=== PATIENT | male | born 1980 | race Caucasian/White ===

== ENCOUNTER 2024-12-22 09:50 | Inpatient (IN) | payer MEDICAID, OTHER ==
[2024-12-22 10:39] LABS: Basophils # (A) 0.05 10*3/uL (0.00-0.10); Basophils % (A) 1.3 %; Eosinophils # (A) 0.02 10*3/uL (0.04-0.35); Eosinophils % (A) 0.5 %; HCT 42.7 % (39.6-50.0); HGB 14.8 g/dL (13.0-17.0); Lymphocytes # (A) 1.05 10*3/uL (0.90-5.00); Lymphocytes % (A) 27.6 %; MCH 28.6 pg (27.0-32.0); MCHC 34.7 g/dL (32.0-37.0); MCV 82.4 fL (80.0-97.0); Monocytes # (A) 0.51 10*3/uL (0.20-1.00); Monocytes % (A) 13.4 %; Neutrophils # (A) 2.14 10*3/uL (1.80-7.70); Neutrophils % (A) 56.4 %; Platelet Count 180 10*3/uL (140-440); RBC 5.18 10*6/uL (4.40-5.60); RDW 13.1 % (11.5-14.5)
[2024-12-22 10:53] LABS: ALT 33 U/L (4-49); AST 35 U/L (17-59); African American GFR (CKD) >90 (>60 ml/min/1.73 sqM); Albumin 4.2 g/dL (3.5-5.0); Alkaline Phosphatase 91 U/L (38-126); Anion Gap 9 mmol/L; Blood Urea Nitrogen 9 mg/dL (9-20); Calcium 8.8 mg/dL (8.4-10.2); Carbon Dioxide 23 mmol/L (22-30); Chloride 103 mmol/L (98-107); Glucose 160 mg/dL (74-99); Lipase 82 U/L (23-300); Magnesium 1.9 mg/dL (1.6-2.3); Non-African American GFR(CKD) 79 (>60 ml/min/1.73 sqM); Potassium 4.1 mmol/L (3.5-5.1); Sodium 135 mmol/L (137-145); Total Bilirubin 1.4 mg/dL (0.2-1.3); Total Protein 7.1 g/dL (6.3-8.2)
[2024-12-22] MEDS: SODIUM CHLORIDE 0.9% 1,000 ML IV STA (10:54)
[2024-12-22] MEDS: KETOROLAC 15 MG/ML 1 ML VIAL IVP STA (10:54)
[2024-12-22] MEDS: diphenhydrAMINE 50 MG/ML 1 ML VIAL IVP STA (10:55)
[2024-12-22] MEDS: ONDANSETRON 4 MG/2 ML VIAL IVP STA (10:56)
[2024-12-22 11:01] LABS: NT-Pro-B-Type Natriuretic Pept 61 pg/mL
[2024-12-22 11:11] LABS: INR 1.2 (<1.2); Partial Thromboplastin Time 24.5 sec (22.0-30.0); Prothrombin Time 12.5 sec (10.0-12.5)
--- NOTE | 2024-12-22 11:34 | XR ---
EXAMINATION TYPE: XR chest 2V DATE OF EXAM: 12/22/2024 11:31 AM COMPARISON: None. CLINICAL INDICATION: Male, 44 years old with history of Chest Pain, TECHNIQUE: XR chest 2V view(s) obtained. FINDINGS: The heart size is normal. The pulmonary vasculature is normal. The lungs are clear. IMPRESSION: 1. No acute pulmonary process. [facility], , 12/22/2024 11:32 AM
[2024-12-22 11:36] LABS: Influenza A Not Detected (Not Detectd); Influenza B Not Detected (Not Detectd); RSV Not Detected (Not Detectd)
--- NOTE | 2024-12-22 13:24 | CT ---
EXAMINATION TYPE: CT chest angio for PE DATE OF EXAM: 12/22/2024 COMPARISON: None CLINICAL INDICATION: Male, 44 years old with history of eval for PE; PHH, CP, eval for PE., SOB or PA IN TECHNIQUE: Ct angiogram of the chest performed with with IV Contrast, patient injected with 100 ml mL of Isovue 370. MIP images are created and reviewed. CT DLP: 659.[address] CTDI: mGy Automated exposure control for dose reduction was used. FINDINGS: There are no filling defects within the pulmonary arterial circulation to suggest pulmonary embolism. There is a 10.7 mm left lower lobe pulmonary nodule. There is an enlarged 12.5 mm left hilar lymph no de. There is no mediastinal adenopathy. There is no airspace consolidation. There is no abnormal interstitial density. There is no pleural effusion or pneumothorax. Limited scanning through the upper abdomen reveals hepatomegaly and borderline splenic enlargement. There are no focal osseous lesions. IMPRESSION: 1. No evidence of pulmonary embolism. 2. 10.7 mm left lower lobe pulmonary nodule and left hilar lymphadenopathy. 3. Hepatomegaly and borderline splenic enlargement. 4. Malignancy is not excluded and further workup is warranted. PET scan for the left lower lobe pulmo nary nodule is recommended. Follow-up recommendations for incidental pulmonary nodules are per [employer] or [employer]. [facility], , 12/22/2024 1:21 PM
--- NOTE | 2024-12-22 14:11 | US ---
EXAMINATION TYPE: US venous doppler duplex LE BI DATE OF EXAM: 12/22/2024 1:45 PM COMPARISON: NONE CLINICAL INDICATION: Male, 44 years old with history of eval for dvt; pain, Pain TECHNIQUE: The lower extremity deep venous system is examined utilizing real time linear array sonog tona with graded compression, color doppler sonography, and spectral doppler. SIDE PERFORMED: Bilateral FINDINGS: VESSELS IMAGED: Common Femoral Vein Deep Femoral Vein Greater Saphenous Vein * Femoral Vein Popliteal Vein Small Saphenous Vein * Proximal Calf Veins (* superficial vessels) Right Leg: Negative for DVT, Color Doppler imaging shows patency of the vessels. Spectral waveforms are within normal limits. Left Leg: Negative for DVT, Color Doppler imaging shows patency of the vessels. Spectral waveforms a re within normal limits. IMPRESSION: 1. Bilateral lower extremity ultrasound negative for deep venous thrombosis. [facility], , 12/22/2024 2:09 PM
[2024-12-22] MEDS ORDERED: NALOXONE 0.4 MG/ML 1 ML VIAL IV PRN (14:44)
--- NOTE | 2024-12-22 14:58 | ED ---
General Adult HPI - General Chief complaint: Chest Pain Stated complaint: chest pain Time Seen by Provider: 12/22/24 10:09 Source: patient, RN notes reviewed, old records reviewed Mode of arrival: ambulatory Limitations: no limitations - History of Present Illness Initial comments: Patient is a 44-year-old male who presents emergency department with intermittent chest pain, shortness of breath ongoing for weeks to months. States he has been intermittently short of breath at rest and and on exertion for the last 2 months. Has noticed some intermittent chest discomfort over the last few weeks. For last 1 week he has had a migraine headache that is more or less constant. Describes the chest pain as an achy sensation and then feels lik e his heart is racing. Recently just started seeing a PCP. Has a history of sleep apnea as well as remote history of what sounds like a provoked DVT currently not on blood thinners. Presents for further evaluation at this time. No known provocative or palliative factors. No cough or congestion. No fevers. No tobacco history.Currently has no symptoms other than migraine. - Related Data Home Medications Medication Instructions Recorded Confirmed Omeprazole Magnesium [PriLOSEC OTC] 20 mg PO DAILY 12/22/24 12/22/24 diphenhydrAMINE [Benadryl] 25 mg PO DAILY 12/22/24 12/22/24 Allergies Allergy/AdvReac Type Severity Reaction Status Date / Time No Known Allergies Allergy Verified 12/22/24 14:39 Review of Systems ROS Statement: Those systems with pertinent positive or pertinent negative responses have been documented in the HPI. Review of Systems: CONST: Denies fever EYES: Denies blurry vision ENT: Denies nasal congestion C/V: Denies Chest pain RESP: Denies shortness of breath GI: Denies abdominal pain : Denies dysuria SKIN: Denies rash. MSK: Denies joint pain. NEURO: Endorses headache ROS Other: All systems not noted in ROS Statement are negative. Past Medical History Additional Past Medical History / Comment(s): t5-9 herniated, sleep apnea, seasonal allergies History of Any Multi-Drug Resistant Organisms: None Reported Past Surgical History: No Surgical Hx Reported Past Psychological History: No Psychological Hx Reported Smoking Status: Never smoker Past Alcohol Use History: Occasional Past Drug Use History: None Reported General Exam - General Exam Comments Initial Comments: General: Appears in no acute distress. Febrile in the waiting room however afebrile at bedside. Does not feel febrile. HEAD: Normal with no signs of head trauma. EYES: PERRLA, EOMI, conjunctiva normal, no discharge. Pupils are 3 mm and equal bilaterally. ENT: Hearing grossly intact, normal oropharynx. RESPIRATORY: Clear breath sounds bilaterally. No wheezes, rales, or rhonchi. C/V: Regular rate and rhythm. S1 and S2 auscultated, no edema, peripheral pulses 2+ and intact throughout ABD: Abd is soft, nontender, nondistended EXT: Normal range of motion, no obvious deformity SKIN: No rashes or lesions observed on exposed skin. NEURO: Alert and oriented x 4. Cranial nerves II-XII intact. No focal sensory or strength deficits. GCS of 15. Limitations: no limitations Course Vital Signs 12/22/24 12/22/24 12/22/24 09:53 11:33 14:11 Temperature 100.1 F H 98.3 F Pulse Rate 105 H 74 74 Respiratory 18 18 18 Rate Blood Pressure 136/82 138/92 127/82 O2 Sat by Pulse 96 96 99 Oximetry Medical Decision Making - Medical Decision Making Was pt. sent in by a medical professional or institution (, PA, ELEMENTARY LIBRARIAN, urgent care, hospital, or fdc...) When possible be specific @ -No Did you speak to anyone other than the patient for history (EMS, parent, family, police, friend...)? What history was obtained from this source @ -No Did you review nursing and triage notes (agree or disagree)? Why? @ -I reviewed and agree with nursing and triage notes Were old charts reviewed (outside hosp., previous admission, EMS record, old EKG, old radiological studies, urgent care reports/EKG's, fdc records)? Report findings @ -No old charts were reviewed Differential Diagnosis (chest pain, altered mental status, abdominal pain women, abdominal pain men, vaginal bleeding, weakness, fever, dyspnea, syncope, headache, dizziness, GI bleed, back pain, seizure, CVA, palpatations, mental health, musculoskeletal)? @ -Differential Chest Pain: Stable Angina, Unstable Angina, STEMI, NSTEMI Aortic Dissection, Pneumothorax, Musculoskeletal, Esophageal Spasm GERD, Cholecystitis, Pancreatitis, Zoster, this is not meant to be an all-inclusive list. EKG interpreted by me (3pts min.). @ -As above X-rays interpreted by me (1pt min.). @ -Chest x-ray reveals no obvious acute cardiopulmonary process. CT interpreted by me (1pt min.). @ -CT PE negative for pulmonary embolism. Patient does have a 10.7 mm left lower lobe pulmonary nodule with left hilar lymphadenopathy. Mild hepatomegaly and splenic enlargement. Radiology concern for possible malignancy regarding the pulmonary nodule and the lymphadenopathy. U/S interpreted by me (1pt. min.). @ -DVT ultrasound negative for DVT. What testing was considered but not performed or refused? (CT, X-rays, U/S, labs)? Why? @ -None What meds were considered but not given or refused? Why? @ -None Did you discuss the management of the patient with other professionals (professionals i.e. , PA, ELEMENTARY LIBRARIAN, lab, RT, psych nurse, social work administrator, management liaison, teacher, county health officer, continuous pillowcase cutter)? Give summary @ -Discussed with JORDAN Brar of [facility] who accepted the admission. Was smoking cessation discussed for >3mins.? @ -No Was critical care preformed (if so, how long)? @ -No Were there social determinants of health that impacted care today? How? (Homelessness, low income, unemployed, alcoholism, drug addiction, transportation, low edu. Level, literacy, decrease access to med. care, group home, rehab)? @ -No Was there de-escalation of care discussed even if they declined (Discuss DNR or withdrawal of care, Hospice)? DNR status @ -No What co-morbidities impacted this encounter? (DM, HTN, Smoking, COPD, CAD, Cancer, CVA, ARF, Chemo, Hep., AIDS, mental health diagnosis, sleep apnea, morbid obesity)? @ -Sleep apnea Was patient admitted / discharged? Hospital course, mention meds given and route, prescriptions, significant lab abnormalities, going to OR and other pertinent info. @ -Patient presents with multiple nonspecific symptoms, most concerning of which are the intermittent chest discomfort and 2 months of dyspnea. Patient also has a migraine. Given a migraine cocktail which improved his migraine. He currently has no chest pain or shortness of breath. Vital signs are within acceptable limits. EKG shows no signs of acute ischemia. Laboratory studies remarkable for slightly elevated D-dimer of 0.62. Troponin undetectable. BNP within acceptable limits. Chest x-ray unremarkable. DVT ultrasound negative for any obvious blood clot. CTPE negative for pulmonary embolism but does show a left lobe pulmonary nodule with surrounding lymphadenopathy. I updated the patient. He expressed understanding of findings. Patient will be admitted to observation for cardiology evaluation for his atypical chest pain. Pulmonology consulted for the pulmonary nodule as well as the intermittent dyspnea. Echo ordered. Will trend the troponin. Given 324 mg of aspirin. Patient was in agreement this plan. It seems that the patient has poor outpatient follow-up. I discussed the case with the admitting provider, JORDAN Brar of [facility] who accepted the admission. Undiagnosed new problem with uncertain prognosis? @ -No Drug Therapy requiring intensive monitoring for toxicity (Heparin, Nitro, Insulin, Cardizem)? @ -No Were any procedures done? @ -No Diagnosis/symptom? @ -Atypical chest pain, pulmonary nodule Acute, or Chronic, or Acute on Chronic? @ -Acute Uncomplicated (without systemic symptoms) or Complicated (systemic symptoms)? @ -complicated Side effects of treatment? @ -No Exacerbation, Progression, or Severe Exacerbation? @ -No Poses a threat to life or bodily function? How? (Chest pain, [place], [place], pneumonia, PE, COPD, DKA, ARF, appy, cholecystitis, CVA, Diverticulitis, Homicidal, Suicidal, threat to staff... and all critical care pts) @ -Potentially, yes - Lab Data Result diagrams: 12/22/24 10:25 12/22/24 10:25 Lab Results 12/22/24 12/22/24 12/22/24 Range/Units 10:25 10:25 10:25 WBC 3.80 L (4.50-10.00) 10*3/uL RBC 5.18 (4.40-5.60) 10*6/uL Hgb 14.8 (13.0-17.0) g/dL Hct 42.7 (39.6-50.0) % MCV 82.4 (80.0-97.0) fL MCH 28.6 (27.0-32.0) pg MCHC 34.7 (32.0-37.0) g/dL Plt Count 180 (140-440) 10*3/uL MPV 10.0 (9.5-12.2) fL Immature Gran % (Auto) 0.8 % Neutrophils % 56.4 % Lymphocytes % 27.6 % Monocytes % 13.4 % Eosinophils % 0.5 % Basophils % 1.3 % Immature Gran # 0.03 (0.00-0.04) 10*3/uL Neutrophils # 2.14 (1.80-7.70) 10*3/uL Lymphocytes # 1.05 (0.90-5.00) 10*3/uL Monocytes # 0.51 (0.20-1.00) 10*3/uL Eosinophils # 0.02 L (0.04-0.35) 10*3/uL Basophils # 0.05 (0.00-0.10) 10*3/uL PT 12.5 (10.0-12.5) sec INR 1.2 H (<1.2) APTT 24.5 (22.0-30.0) sec D-Dimer 0.62 H (<0.60) mg/L FEU Sodium 135 L (137-145) mmol/L Potassium 4.1 (3.5-5.1) mmol/L Chloride 103 (98-107) mmol/L Carbon Dioxide 23 (22-30) mmol/L Anion Gap 9 mmol/L BUN 9 (9-20) mg/dL Creatinine 1.14 (0.66-1.25) mg/dL Est GFR (CKD-EPI)AfAm >90 (>60 ml/min/1.73 sqM) Est GFR (CKD-EPI)NonAf 79 (>60 ml/min/1.73 sqM) Glucose 160 H (74-99) mg/dL Plasma Lactic Acid Waqar (0.7-2.0) mmol/L Calcium 8.8 (8.4-10.2) mg/dL Magnesium 1.9 (1.6-2.3) mg/dL Total Bilirubin 1.4 H (0.2-1.3) mg/dL AST 35 (17-59) U/L ALT 33 (4-49) U/L Alkaline Phosphatase 91 (38-126) U/L Troponin I (0.000-0.034) ng/mL NT-Pro-B Natriuret Pep 61 pg/mL Total Protein 7.1 (6.3-8.2) g/dL Albumin 4.2 (3.5-5.0) g/dL Lipase 82 (23-300) U/L Influenza Type A (PCR) (Not Detectd) Influenza Type B (PCR) (Not Detectd) RSV (PCR) (Not Detectd) SARS-CoV-2 (PCR) (Not Detectd) 12/22/24 12/22/24 12/22/24 Range/Units 10:25 10:25 10:57 WBC (4.50-10.00) 10*3/uL RBC (4.40-5.60) 10*6/uL Hgb (13.0-17.0) g/dL Hct (39.6-50.0) % MCV (80.0-97.0) fL MCH (27.0-32.0) pg MCHC (32.0-37.0) g/dL Plt Count (140-440) 10*3/uL MPV (9.5-12.2) fL Immature Gran % (Auto) % Neutrophils % % Lymphocytes % % Monocytes % % Eosinophils % % Basophils % % Immature Gran # (0.00-0.04) 10*3/uL Neutrophils # (1.80-7.70) 10*3/uL Lymphocytes # (0.90-5.00) 10*3/uL Monocytes # (0.20-1.00) 10*3/uL Eosinophils # (0.04-0.35) 10*3/uL Basophils # (0.00-0.10) 10*3/uL PT (10.0-12.5) sec INR (<1.2) APTT (22.0-30.0) sec D-Dimer (<0.60) mg/L FEU Sodium (137-145) mmol/L Potassium (3.5-5.1) mmol/L Chloride (98-107) mmol/L Carbon Dioxide (22-30) mmol/L Anion Gap mmol/L BUN (9-20) mg/dL Creatinine (0.66-1.25) mg/dL Est GFR (CKD-EPI)AfAm (>60 ml/min/1.73 sqM) Est GFR (CKD-EPI)NonAf (>60 ml/min/1.73 sqM) Glucose (74-99) mg/dL Plasma Lactic Acid Waqar 1.4 (0.7-2.0) mmol/L Calcium (8.4-10.2) mg/dL Magnesium (1.6-2.3) mg/dL Total Bilirubin (0.2-1.3) mg/dL AST (17-59) U/L ALT (4-49) U/L Alkaline Phosphatase (38-126) U/L Troponin I <0.012 (0.000-0.034) ng/mL NT-Pro-B Natriuret Pep pg/mL Total Protein (6.3-8.2) g/dL Albumin (3.5-5.0) g/dL Lipase (23-300) U/L Influenza Type A (PCR) Not Detected (Not Detectd) Influenza Type B (PCR) Not Detected (Not Detectd) RSV (PCR) Not Detected (Not Detectd) SARS-CoV-2 (PCR) Not Detected (Not Detectd) - EKG Data -: EKG Interpreted by Me EKG Comments: 12-lead Electrocardiogram Interpretation Note EKG was reviewed and interpreted by myself. 12-lead ECG performed at 1005 is interpreted by me as revealing normal sinus rhythm at a rate of 86 beats per minute. Lee is normal. [place] interval is 141 ms, QRS duration 104 ms, QTc is 403 ms.. There were no ST or T wave abnormalities to suggest myocardial ischemia or injury. R wave progression across the precordium was satisfactory. By my interpretation this EKG is non-diagnostic for acute ischemia. Disposition Clinical Impression: Atypical chest pain, Pulmonary nodule Disposition: ADMITTED IP TO THIS HOSP Condition: Stable Referrals: [facility] [NON-STAFF] - 1-2 days (Contact a primary care office to become established with a provider.) [facility] [NON-STAFF] - 1-2 days None,Stated [Primary Care Provider] - 1-2 days Forms: Area PCPs Time of Disposition: 14:30
[2024-12-22] MEDS: ASPIRIN 81 MG PO STA (14:59)
--- NOTE | 2024-12-22 16:24 | P.CNPUL ---
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 Chest x-ray reveals no acute pulmonary process. Doppler of the lower extremity ruled out DVT CT angiogram ruled out pulmonary embolism. There was an incidental 11 mm left lower lobe pulmonary nodule noted. We were consulted for the same. He is seen in the emergency department. Currently sitting up on a stretcher. Awake and alert in no acute distress. Maintaining good O2 saturations in the 90s on room air oxygen. No cough or congestion. No hemoptysis. Hemodynamically stable. White count 3.8. Hemoglobin 14.8. Platelets 180. Sodium 135. Potassium 4.1. Bicarb 23. BUN 9. Creatinine 1.14. Glucose 160. Troponins negative x 2. CBC viral screen negative for influenza A/B, RSV and COVID. Review of Systems REVIEW OF SYSTEMS: CONSTITUTIONAL: Denies any recent significant weight loss or weight gain. EYES: Denies change in vision. EARS, NOSE, MOUTH, THROAT: Denies headaches, denies sore throat. CARDIOVASCULAR: Positive for chest pain, palpitations no syncopal episodes. RESPIRATORY: Positive for shortness of breath, no cough, congestion or hemopt ysis. GASTROINTESTINAL: Denies change in appetite, denies abdominal pain GENITOURINARY: Denies hematuria, denies infections. MUSKULOSKELETAL: Denies pain, denies swelling. INTEGUMENTARY: Denies rash, denies eczema. NEUROLOGICAL: Denies recent memory loss, no recent seizure activity. PSYCHIATRIC: Denies anxiety, denies depression. HEMATOLOGIC/LYMPHATIC: Denies anemia, denies enlarged lymph nodes. Past Medical History Additional Past Medical History / Comment(s): t5-9 herniated, sleep apnea, seasonal allergies History of Any Multi-Drug Resistant Organisms: None Reported Past Surgical History: No Surgical Hx Reported Past Psychological History: No Psychological Hx Reported Smoking Status: Never smoker Past Alcohol Use History: Occasional Past Drug Use History: None Reported Medications and Allergies Home Medications Medication Instructions Recorded Confirmed Type Omeprazole Magnesium [PriLOSEC OTC] 20 mg PO DAILY 12/22/24 12/22/24 History diphenhydrAMINE [Benadryl] 25 mg PO DAILY 12/22/24 12/22/24 History Allergies Allergy/AdvReac Type Severity Reaction Status Date / Time No Known Allergies Allergy Verified 12/22/24 14:39 Physical Exam Vitals: Vital Signs Temp Pulse Resp BP Pulse Ox 12/22/24 14:11 74 18 127/82 99 12/22/24 11:33 98.3 F 74 18 138/92 96 12/22/24 09:53 100.1 F H 105 H 18 136/82 96 Intake and Output 12/22/24 12/22/24 12/22/24 06:59 14:59 22:59 Other: Weight 120.202 kg GENERAL EXAM: Alert, pleasant 44-year-old male, on room air oxygen, fairly comfortable in no apparent distress. HEAD: Normocephalic. EYES: Normal reaction of pupils, equal size. NOSE: Clear with pink turbinates. THROAT: No erythema or exudates. NECK: No masses, no JVD. CHEST: No chest wall deformity. LUNGS: Equal air entry with no crackles, wheeze, rhonchi or dullness. CVS: S1 and S2 normal with no audible murmur, regular rhythm. ABDOMEN: No hepatosplenomegaly, normal bowel sounds, no guarding or rigidity. SPINE: No scoliosis or deformity SKIN: No rashes CENTRAL NERVOUS SYSTEM: No focal deficits, tone is normal in all 4 extremities. EXTREMITIES: There is no peripheral edema. No clubbing, no cyanosis. Peripheral pulses are intact. Results - Laboratory Findings CBC and BMP: 12/22/24 10:25 12/22/24 10:25 PT/INR, D-dimer PT 12.5 sec (10.0-12.5) 12/22/24 10:25 INR 1.2 (<1.2) H 12/22/24 10:25 D-Dimer 0.62 mg/L FEU (<0.60) H 12/22/24 10:25 Abnormal lab findings: Abnormal Labs 12/22/24 12/22/24 12/22/24 10:25 10:25 10:25 WBC 3.80 L Eosinophils # 0.02 L INR 1.2 H D-Dimer 0.62 H Sodium 135 L Glucose 160 H Total Bilirubin 1.4 H - Diagnostic Findings Chest x-ray: image reviewed CT scan - chest: image reviewed Assessment and Plan Assessment: Atypical chest pain, acute coronary syndrome ruled out Dyspnea of unclear etiology, possible deconditioning, CT angiogram ruled out pulmonary embolism, clear lung mcdaniel Pulmonary nodule measuring 11 mm in the left lower lobe History of obstructive sleep apnea maintained on CPAP Lifelong non-smoker Plan: The patient was seen and evaluated All imaging, labs and medications reviewed Stable and on room air oxygen Cardiology consult pending Patient informed of the 11 mm pulmonary nodule Would recommend follow-up CAT scan in 3 to 4 months Will follow-up in our office after discharge I have personally seen and examined the patient, performed the documentation and the assessment and plan as written. Number of minutes spent on the visit: 20 Dictation was produced using [employer] dictation software. Please excuse any grammatical, word or spelling errors. Time with Patient: Greater than 30
[2024-12-22] MEDS: ONDANSETRON 4 MG/2 ML VIAL IVP PRN (19:11)
[2024-12-22 20:21] LABS: Appearance,Urine Clear (Clear); Bilirubin,Urine Negative (Negative); Blood,Urine Moderate (Negative); Color,Urine Yellow; Glucose,Urine (UA) 1+ (Negative); Ketones,Urine Negative (Negative); Leukocyte Esterase,Urine Negative (Negative); Mucus,Urine Rare /hpf; Nitrite,Urine Negative (Negative); Protein,Urine Negative (Negative); RBC,Urine 17 /hpf (0-5); WBC,Urine 1 /hpf (0-5)
[2024-12-22] MEDS: Acetaminophen-Codeine 300-30mg TAB PO PRN (20:50)
[2024-12-23] MEDS: ENOXAPARIN 40 MG/0.4 ML SYRINGE SQ SCH (08:19)
[2024-12-23 08:20] LABS: BUN/Creat Ratio 8.23 Ratio (12.00-20.00); Blood Urea Nitrogen 10.7 mg/dL (9.0-27.0); Chloride 103 mmol/L (96-109); Glucose 125 mg/dL (70-110); Potassium 4.8 mmol/L (3.5-5.5); Sodium 137 mmol/L (135-145)
[2024-12-23 08:21] LABS: ALT 33 U/L (10-49); AST 31 U/L (14-35); Albumin 3.8 g/dL (3.8-4.9); Albumin/Globulin Ratio 1.58 Ratio (1.60-3.17); Alkaline Phosphatase 79 U/L (41-126); Calcium 8.4 mg/dL (8.7-10.3); Carbon Dioxide 24.4 mmol/L (21.6-31.8); Globulin 2.4 g/dL (1.6-3.3); Total Protein 6.2 g/dL (6.2-8.2)
[2024-12-23 08:41] LABS: Basophils # (A) 0.03 X 10*3/uL (0.00-0.10); Basophils % (A) 0.8 %; Eosinophils # (A) 0.02 X 10*3/uL (0.04-0.35); Eosinophils % (A) 0.5 %; HCT 41.4 % (39.6-50.0); HGB 13.7 g/dL (13.0-17.0); Lymphocytes # (A) 1.19 X 10*3/uL (0.90-5.00); Lymphocytes % (A) 29.9 %; MCHC 33.1 g/dL (32.0-37.0); MCV 84.5 FL (80.0-97.0); Mean Platelet Volume 10.2 FL (9.5-12.2); Monocytes # (A) 0.64 X 10*3/uL (0.20-1.00); Monocytes % (A) 16.1 %; NRBC Per 100 WBC 0 X 10*3/uL (0.00-0.01); Neutrophils # (A) 2.06 X 10*3/uL (1.80-7.70); Neutrophils % (A) 51.7 %; Platelet Count 168 X 10*3/uL (140-440); RDW 13.3 % (11.5-14.5); WBC 3.98 X 10*3/uL (4.50-10.00)
--- NOTE | 2024-12-23 10:10 | P.CRDCN ---
History of Present Illness Consult date: 12/23/24 Consult reason: chest pain (Dyspnea) History of present illness: This is a 44-year-old male with past medical history of GERD, migraine headaches . We have been asked to evaluate the patient for chest pain. Patient states he started with a migraine headache that was mor severe than he has had in the past. The next day, he developed chest discomfort. Chest pain felt like a heaviness and at the same time he had increased shortness of breath. He denies dizziness or lightheadedness. He denies any lower extremity edema. He states he did have sweating of his palms. He denies any cough or sputum production. No wheezing. Patient also states he had a fluttering sensation in his chest. He has had shortness of breath for the past week that his is also noticed. He denies chest pain with activity. He denies any change in chest pain with deep breathing. Patient states that he is a non-smoker. No alcohol abuse. He denies history of hypertension or diabetes. He has never seen a radon inspector in the past. Patient notes that he has been running a low-grade fever since arrival. Blood pressure noted to be high overnight at 167/108. Blood pressure is now 130/74, heart rate 100, pulse ox 95% on room air, temperature max 101.5. Patient is status post 1 L IV fluid bolus, Zofran, Toradol, Benadryl and aspirin. Patient denies chest pain at the time of this evaluation but he still has ongoing headache 01/19. -EKG: Sinus rhythm with nonspecific ST changes. -Chest x-ray: No acute process. -Venous duplex bilateral lower extremity negative for DVT. -CTA chest: No pulmonary embolism. 10.7 mm left lower lobe pulmonary nodule and left hilar lymphadenopathy. Hepatomegaly and borderline splenic enlargement. Malignancy not excluded. -Laboratory studies: WBC 3.8, hemoglobin 14.8. D-dimer 0.62. Sodium 135, potassium 4.1, BUN 9, creatinine 1.14. Troponins negative x 3. TSH 1.22. Glucose 160. Cepheid viral panel not detected. Urinalysis revealed moderate amount of blood. -Home cardiac medications: None Review Of Systems: At the time of my exam: CONSTITUTIONAL: Denies fever or chills. HEENT: Denies blurred vision, vision changes, or eye pain. Denies hemoptysis CARDIOVASCULAR: Denies chest pain. Denies orthopnea. Denies PND. Denies palpitations RESPIRATORY: Denies shortness of breath. GASTROINTESTINAL: Denies abdominal pain. Denies nausea or vomiting. HEMATOLOGIC: Denies bleeding disorders. GENITOURINARY: Denies any blood in urine. SKIN: Denies puritis. Denies rash. Physical examination: Gen: This is a 44-year-old male in no acute distress. VS: reviewed HEENT: Head is atraumatic, normocephalic. Pupils equal, round. Sclerae is anicteric. NECK: Supple. No JVD. LUNGS: Clear to auscultation. No wheezes or rhonchi. No intercostal retractions. HEART: Regular rate and rhythm. No murmur. No rub. ABDOMEN: Soft No tenderness. EXTREMITIES: No pedal edema. No calf tenderness. NEUROLOGICAL: Patient is awake, alert and oriented x3. Assessment: Atypical chest pain, acute coronary syndrome ruled out Febrile illness of unclear etiology, no clinical evidence of pericarditis Pulmonary nodule with lymphadenopathy, plan is outpatient follow-up GERD Plan: Obtain 2-D echocardiogram and Doppler study to assess cardiac structure and function No plan for any additional cardiac workup at this time. Patient may follow-up in the office with Dr. Barnes for outpatient stress testing. Further recommendations to follow based upon clinical course Thank you kindly for this consultation. Nurse practitioner note has been reviewed, I agree with documented findings and plan of care. Patient was seen and examined. Past Medical History Past Medical History: Deep Vein Thrombosis (DVT), Sleep Apnea/CPAP/BIPAP Additional Past Medical History / Comment(s): t5-9 herniated, sleep apnea with cpap, seasonal allergies History of Any Multi-Drug Resistant Organisms: None Reported Past Surgical History: No Surgical Hx Reported Past Anesthesia/Blood Transfusion Reactions: No Reported Reaction Additional Past Anesthesia/Blood Transfusion Reaction / Comment(s): never had blood transfusion or anesthesia Past Psychological History: No Psychological Hx Reported Smoking Status: Never smoker Past Alcohol Use History: Occasional Past Drug Use History: None Reported Medications and Allergies Home Medications Medication Instructions Recorded Confirmed Type Omeprazole Magnesium [PriLOSEC OTC] 20 mg PO DAILY 12/22/24 12/22/24 History diphenhydrAMINE [Benadryl] 25 mg PO DAILY 12/22/24 12/22/24 History Allergies Allergy/AdvReac Type Severity Reaction Status Date / Time No Known Allergies Allergy Verified 12/22/24 14:39 Physical Exam Vitals: Vital Signs Temp Pulse Pulse Resp BP BP Pulse Ox 12/23/24 03:55 100.3 F H 12/23/24 00:18 101.5 F H 100 20 130/74 95 12/22/24 23:12 124/76 12/22/24 20:00 98.1 F 98 18 167/108 97 12/22/24 19:12 96 18 168/97 97 12/22/24 14:11 74 18 127/82 99 12/22/24 11:33 98.3 F 74 18 138/92 96 12/22/24 09:53 100.1 F H 105 H 18 136/82 96 Intake and Output 12/22/24 12/23/24 12/23/24 22:59 06:59 14:59 Intake Total 540 Balance 540 Intake: Oral 540 Other: Voiding Method Toilet # Voids 2 2 Weight 120.202 kg Results 12/23/24 05:24 12/23/24 05:24 Cardiac Enzymes 12/22/24 12/22/24 12/22/24 Range/Units 10:25 10:25 15:00 AST 35 (17-59) U/L Troponin I <0.012 <0.012 (0.000-0.034) ng/mL 12/22/24 Range/Units 18:42 AST (17-59) U/L Troponin I <0.012 (0.000-0.034) ng/mL Coagulation 12/22/24 Range/Units 10:25 PT 12.5 (10.0-12.5) sec APTT 24.5 (22.0-30.0) sec CBC 12/22/24 Range/Units 10:25 WBC 3.80 L (4.50-10.00) 10*3/uL RBC 5.18 (4.40-5.60) 10*6/uL Hgb 14.8 (13.0-17.0) g/dL Hct 42.7 (39.6-50.0) % Plt Count 180 (140-440) 10*3/uL Comprehensive Metabolic Panel 12/22/24 Range/Units 10:25 Sodium 135 L (137-145) mmol/L Potassium 4.1 (3.5-5.1) mmol/L Chloride 103 (98-107) mmol/L Carbon Dioxide 23 (22-30) mmol/L BUN 9 (9-20) mg/dL Creatinine 1.14 (0.66-1.25) mg/dL Glucose 160 H (74-99) mg/dL Calcium 8.8 (8.4-10.2) mg/dL AST 35 (17-59) U/L ALT 33 (4-49) U/L Alkaline Phosphatase 91 (38-126) U/L Total Protein 7.1 (6.3-8.2) g/dL Albumin 4.2 (3.5-5.0) g/dL Current Medications Generic Name Dose Route Start Last Admin Trade Name Freq PRN Reason Stop Dose Admin Acetaminophen/Codeine Phosphate 1 each 12/22/24 20:09 12/23/24 03:52 Acetaminophen-Codeine 300-30mg Tab PO 1 each Q6HR PRN Administration Pain Enoxaparin Sodium 40 mg 12/23/24 09:00 Enoxaparin 40 Mg/0.4 Ml Syringe SQ DAILY LINDSAY Naloxone HCl 0.2 mg 12/22/24 14:44 Naloxone 0.4 Mg/Ml 1 Ml Vial IV Q2M PRN Opioid Reversal Ondansetron HCl 4 mg 12/22/24 14:44 12/22/24 19:11 Ondansetron 4 Mg/2 Ml Vial IVP 4 mg Q8HR PRN Administration Nausea And Vomiting Intake and Output 12/22/24 12/23/24 12/23/24 22:59 06:59 14:59 Intake Total 540 Balance 540 Intake: Oral 540 Other: Voiding Method Toilet # Voids 2 2 Weight 120.202 kg 12/22/24 10:25 12/22/24 10:25
--- NOTE | 2024-12-23 14:18 | P.HPIM ---
History of Present Illness 44-year-old male with history of obstructive sleep apnea came in with complaints of headache bilateral patient had couple episodes of migraine in the past patient was also complaining of chest pain fluttering in nature. Patient had a chest x-ray which showed a pulmonary nodule. Patient had a CT angio of the chest which did not show any significant abnormality except for a pulmonary nodule for which pulmonary evaluated the patient. They will follow-up with him as an outpatient no further intervention is being advised by them. Patient was eval by cardiology for chest pain appears to be noncardiac chest pain. Patient's troponins are negative EKG did not show any significant abnormality. Patient also had low-grade fevers last night patient is negative for influenza AB, RSV and COVID. Patient was having some photophobia but does not have any nuchal rigidity or neck rigidity or neck pain. Patient does not look toxic or septic REVIEW OF SYSTEMS: All other systems are negative except those mentioned in the HPI PHYSICAL EXAMINATION: GENERAL: The patient is alert and oriented x3, not in any acute distress. Well developed, well nourished. HEENT: Pupils are round and equally reacting to light. EOMI. No scleral icterus. No conjunctival pallor. Normocephalic, atraumatic. No pharyngeal erythema. No thyromegaly. CARDIOVASCULAR: S1 and S2 present. No murmurs, rubs, or gallops. PULMONARY: Chest is clear to auscultation, no wheezing or crackles. ABDOMEN: Soft, nontender, nondistended, normoactive bowel sounds. No palpable organomegaly. MUSCULOSKELETAL: No joint swelling or deformity. EXTREMITIES: No cyanosis, clubbing, or pedal edema. NEUROLOGICAL: Gross neurological examination did not reveal any focal deficits. SKIN: No rashes. Assessment and plan -Chest pain atypical rule out acute coronary syndromes evaluated by cardiology no further intervention is being planned at this time - Headache with unexplained fever although there is low possibility meningitis and encephalitis is a consideration may need an LP but we will wait recommendations from infectious disease. - Pulmonary nodule 11 mm in the left lower lobe patient will have a follow-up CAT scan in about 3 to 4 months as an outpatient - Obstructive sleep apnea - Obesity - Gastroesophageal reflux disease - Headache there is still a possibility of migraine headache I cannot give Nostril anti-inflammatories as his creatinine went up from 1.1-1.3 we will use tramadol for now. DVT prophylaxis: Early ambulation Past Medical History Past Medical History: Deep Vein Thrombosis (DVT), Sleep Apnea/CPAP/BIPAP Additional Past Medical History / Comment(s): t5-9 herniated, sleep apnea with cpap, seasonal allergies History of Any Multi-Drug Resistant Organisms: None Reported Past Surgical History: No Surgical Hx Reported Past Anesthesia/Blood Transfusion Reactions: No Reported Reaction Additional Past Anesthesia/Blood Transfusion Reaction / Comment(s): never had blood transfusion or anesthesia Past Psychological History: No Psychological Hx Reported Smoking Status: Never smoker Past Alcohol Use History: Occasional Past Drug Use History: None Reported Medications and Allergies Home Medications Medication Instructions Recorded Confirmed Type Omeprazole Magnesium [PriLOSEC OTC] 20 mg PO DAILY 12/22/24 12/22/24 History diphenhydrAMINE [Benadryl] 25 mg PO DAILY 12/22/24 12/22/24 History Allergies Allergy/AdvReac Type Severity Reaction Status Date / Time No Known Allergies Allergy Verified 12/22/24 14:39 Physical Exam Vitals: Vital Signs Temp Pulse Pulse Resp BP BP Pulse Ox 12/23/24 07:20 100.1 F H 82 18 141/88 96 12/23/24 03:55 100.3 F H 12/23/24 00:18 101.5 F H 100 20 130/74 95 12/22/24 23:12 124/76 12/22/24 20:00 98.1 F 98 18 167/108 97 12/22/24 19:12 96 18 168/97 97 Intake and Output 12/22/24 12/23/24 12/23/24 22:59 06:59 14:59 Intake Total 540 118 Balance 540 118 Intake: Oral 540 118 Other: Voiding Method Toilet # Voids 2 2 Weight 120.202 kg Results CBC & Chem 7: 12/23/24 05:24 12/23/24 05:24 Labs: Abnormal Lab Results - Last 24 Hours (Table) 12/22/24 12/23/24 12/23/24 Range/Units 20:00 05:24 05:24 WBC 3.98 L (4.50-10.00) X 10*3/uL Eosinophils # 0.02 L (0.04-0.35) X 10*3/uL ESR (0-15) mm/Hr BUN/Creatinine Ratio 8.23 L (12.00-20.00) Ratio Glucose 125 H (70-110) mg/dL Calcium 8.4 L (8.7-10.3) mg/dL C-Reactive Protein (0.00-0.80) mg/dL Albumin/Globulin Ratio 1.58 L (1.60-3.17) Ratio Ur Specific [place] 1.050 H (1.001-1.035) Urine Glucose (UA) 1+ H (Negative) Urine Blood Moderate H (Negative) Urine RBC 17 H (0-5) /hpf Urine Mucus Rare H (None) /hpf 12/23/24 12/23/24 Range/Units 05:24 05:24 WBC (4.50-10.00) X 10*3/uL Eosinophils # (0.04-0.35) X 10*3/uL ESR 19 H (0-15) mm/Hr BUN/Creatinine Ratio (12.00-20.00) Ratio Glucose (70-110) mg/dL Calcium (8.7-10.3) mg/dL C-Reactive Protein 1.60 H (0.00-0.80) mg/dL Albumin/Globulin Ratio (1.60-3.17) Ratio Ur Specific [place] (1.001-1.035) Urine Glucose (UA) (Negative) Urine Blood (Negative) Urine RBC (0-5) /hpf Urine Mucus (None) /hpf Thrombosis Risk Factor Assmnt - Choose All That Apply Any of the Below Risk Factors Present?: Yes Each Factor Represents 1 point: Age 41-60 years, Obesity (BMI >25) Each Risk Factor Represents 3 Points: History of DVT/PE Thrombosis Risk Factor Assessment Total Risk Factor Score: 5 Thrombosis Risk Factor Assessment Level: High Risk
--- NOTE | 2024-12-23 14:42 | P.PN ---
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 Chest x-ray reveals no acute pulmonary process. Doppler of the lower extremity ruled out DVT. CT angiogram ruled out pulmonary embolism. There was an incidental 11 mm left lower lobe pulmonary nodule noted. We were consulted for the same. He is seen in the emergency department. Currently sitting up on a stretcher. Awake and alert in no acute distress. Maintaining good O2 saturations in the 90s on room air oxygen. No cough or congestion. No hemoptysis. Hemodynamically stable. White count 3.8. Hemoglobin 14.8. Platelets 180. Sodium 135. Potassium 4.1. Bicarb 23. BUN 9. Creatinine 1.14. Glucose 160. Troponins negative x 2. CBC viral screen negative for influenza A/B, RSV and COVID. The patient is seen today December 23, 2024 in follow-up on the regular medical floor. He is currently sitting up at the bedside. Awake and alert in no acute distress. Maintaining O2 saturations in the 90s on room air oxygen. He denies any worsening shortness of breath, cough or congestion. He denies any sore throat or cough. He is still having some left-sided chest discomfort. He does have a fever of unknown origin. Tmax of 101.5. Procalcitonin pending. Echocardiogram pending. White count 3.9. Hemoglobin 13.7. Platelets 168. Sodium 137. Potassium 4.8. Bicarb 24. BUN 11. Creatinine 1.3. Glucose 125. He is receiving Tylenol as needed. Lovenox for DVT prophylaxis. Objective - Vital Signs Vital signs: Vital Signs Temp 100.1 F H 12/23/24 07:20 Pulse 82 12/23/24 07:20 Resp 18 12/23/24 07:20 BP 141/88 12/23/24 07:20 Pulse Ox 96 12/23/24 07:20 FiO2 Intake & Output 12/22/24 12/23/24 12/23/24 18:59 06:59 18:59 Intake Total 540 118 Balance 540 118 Weight 120.202 kg 120.202 kg Intake: Oral 540 118 Other: Voiding Method Toilet # Voids 2 - Exam GENERAL EXAM: Alert, 44-year-old male, on room air oxygen, fairly comfortable in no apparent distress. HEAD: Normocephalic. EYES: Normal reaction of pupils, equal size. NOSE: Clear with pink turbinates. THROAT: No erythema or exudates. NECK: No masses, no JVD. CHEST: No chest wall deformity. LUNGS: Equal air entry with no crackles, wheeze, rhonchi or dullness. CVS: S1 and S2 normal with no audible murmur, regular rhythm. ABDOMEN: No hepatosplenomegaly, normal bowel sounds, no guarding or rigidity. SPINE: No scoliosis or deformity SKIN: No rashes CENTRAL NERVOUS SYSTEM: No focal deficits, tone is normal in all 4 extremities. EXTREMITIES: There is no peripheral edema. No clubbing, no cyanosis. Peripheral pulses are intact. - Labs CBC & Chem 7: 12/23/24 05:24 12/23/24 05:24 Labs: Abnormal Lab Results - Last 24 Hours (Table) 12/22/24 12/23/24 12/23/24 Range/Units 20:00 05:24 05:24 WBC 3.98 L (4.50-10.00) X 10*3/uL Eosinophils # 0.02 L (0.04-0.35) X 10*3/uL ESR (0-15) mm/Hr BUN/Creatinine Ratio 8.23 L (12.00-20.00) Ratio Glucose 125 H (70-110) mg/dL Calcium 8.4 L (8.7-10.3) mg/dL C-Reactive Protein (0.00-0.80) mg/dL Albumin/Globulin Ratio 1.58 L (1.60-3.17) Ratio Ur Specific [place] 1.050 H (1.001-1.035) Urine Glucose (UA) 1+ H (Negative) Urine Blood Moderate H (Negative) Urine RBC 17 H (0-5) /hpf Urine Mucus Rare H (None) /hpf 12/23/24 12/23/24 Range/Units 05:24 05:24 WBC (4.50-10.00) X 10*3/uL Eosinophils # (0.04-0.35) X 10*3/uL ESR 19 H (0-15) mm/Hr BUN/Creatinine Ratio (12.00-20.00) Ratio Glucose (70-110) mg/dL Calcium (8.7-10.3) mg/dL C-Reactive Protein 1.60 H (0.00-0.80) mg/dL Albumin/Globulin Ratio (1.60-3.17) Ratio Ur Specific [place] (1.001-1.035) Urine Glucose (UA) (Negative) Urine Blood (Negative) Urine RBC (0-5) /hpf Urine Mucus (None) /hpf Assessment and Plan Assessment: Atypical chest pain, acute coronary syndrome ruled out Fever of unknown origin Dyspnea of unclear etiology, possible deconditioning, CT angiogram ruled out pulmonary embolism, clear lung mcdaniel Pulmonary nodule measuring 11 mm in the left lower lobe History of obstructive sleep apnea maintained on CPAP Lifelong non-smoker Plan: The patient was seen and evaluated Having fevers of unknown origin Labs and medications reviewed Stable and on room air oxygen Echocardiogram pending ID consult placed Tylenol as needed Lovenox for DVT prophylaxis Protonix for GI prophylaxis Patient aware of the 11 mm pulmonary nodule Recommend follow-up CAT scan in 3 to 4 months We will continue to follow I have personally seen and examined the patient, performed the documentation and the assessment and plan as written. Number of minutes spent on the visit: 10 Dictation was produced using [email or web address] dictation software. Please excuse any grammatical, word or spelling errors.
[2024-12-23] MEDS: PANTOPRAZOLE 40 MG TABLET PO SCH (15:27)
--- NOTE | 2024-12-23 20:17 | P.CONS ---
History of Present Illness - Reason for Consult Consult date: 12/23/24 FUO Requesting physician: Sejal Montero - Chief Complaint Headache and chest pain x few days - History of Present Illness Patient is a 44-year-old male with a past medical history of For sleep apnea DVT presenting to the hospital with multiple symptoms patient initially started having headache was mostly sudden onset sharp and moderate in intensity subsequently developing chest pain with some associated shortness of breath for which the patient was taken to the hospital by his patient on presentation to the hospital did have low-grade fever 100 F however after midnight he did spike a fever of 101.5 F patient was tachycardic but not hypotensive or hypoxic patient did have a mild leukopenia with a white count of 3.98 but no left shift patient did have a creatinine 1.3 electrolytes are normal liver enzymes are normal urine is mildly positive influenza RSV COVID testing was negative patient did have a chest x-ray followed by CT angiogram of the chest there was no filling defect and there was 10.7 mm left lower lobe pulmonary nodule and enlarged hilar lymph nodes are normal*lymphadenopathy no airspace consolidation ID was consulted concerning for fever of unknown origin patient has been complaining of headache which is moderate intensity with associated photophobia did have nausea but no vomiting denies having any joint swelling or lower ext remity erythema Review of Systems Positive point and negatives has been mentioned in the HPI, complete review of systems was performed and all other systems are negative Past Medical History Past Medical History: Deep Vein Thrombosis (DVT), Sleep Apnea/CPAP/BIPAP Additional Past Medical History / Comment(s): t5-9 herniated, sleep apnea with cpap, seasonal allergies History of Any Multi-Drug Resistant Organisms: None Reported Past Surgical History: No Surgical Hx Reported Past Anesthesia/Blood Transfusion Reactions: No Reported Reaction Additional Past Anesthesia/Blood Transfusion Reaction / Comm: never had blood transfusion or anesthesia Past Psychological History: No Psychological Hx Reported Smoking Status: Never smoker Past Alcohol Use History: Occasional Past Drug Use History: None Reported Medications and Allergies Home Medications Medication Instructions Recorded Confirmed Type Omeprazole Magnesium [PriLOSEC OTC] 20 mg PO DAILY 12/22/24 12/22/24 History diphenhydrAMINE [Benadryl] 25 mg PO DAILY 12/22/24 12/22/24 History Allergies Allergy/AdvReac Type Severity Reaction Status Date / Time No Known Allergies Allergy Verified 12/22/24 14:39 Physical Exam Vitals: Vital Signs Temp Pulse Pulse Resp BP BP Pulse Ox 12/23/24 15:10 98.6 F 83 16 131/77 95 12/23/24 07:20 100.1 F H 82 18 141/88 96 12/23/24 03:55 100.3 F H 12/23/24 00:18 101.5 F H 100 20 130/74 95 12/22/24 23:12 124/76 12/22/24 20:00 98.1 F 98 18 167/108 97 12/22/24 19:12 96 18 168/97 97 Intake and Output 12/23/24 12/23/24 12/23/24 06:59 14:59 22:59 Intake Total 352 Balance 352 Intake: Oral 352 Other: # Voids 2 6 # Bowel Movements 0 GENERAL DESCRIPTION: Middle-age man up in a chair, no distress. No tachypnea or accessory muscle of respiration use. HEENT: Shows Pallor , no scleral icterus. Oral mucous membrane is dry. No pharyngeal erythema or thrush NECK: Trachea central, no thyromegaly. LUNGS: Unlabored breathing. Clear to auscultation anteriorly. No wheeze or crackle. HEART: S1, S2, regular rate and rhythm. No loud murmur ABDOMEN: Soft, no tenderness , guarding or rigidity, no organomegaly EXTREMITIES: No edema of feet. SKIN: No rash, no masses palpable. NEUROLOGICAL: The patient is awake, alert, oriented x3, mood and affect normal. No neck rigidity Results CBC & Chem 7: 12/23/24 05:24 12/23/24 05:24 Labs: Abnormal Lab Results - Last 24 Hours (Table) 12/22/24 12/23/24 12/23/24 Range/Units 20:00 05:24 05:24 WBC 3.98 L (4.50-10.00) X 10*3/uL Eosinophils # 0.02 L (0.04-0.35) X 10*3/uL ESR (0-15) mm/Hr BUN/Creatinine Ratio 8.23 L (12.00-20.00) Ratio Glucose 125 H (70-110) mg/dL Calcium 8.4 L (8.7-10.3) mg/dL C-Reactive Protein (0.00-0.80) mg/dL Albumin/Globulin Ratio 1.58 L (1.60-3.17) Ratio Ur Specific [place] 1.050 H (1.001-1.035) Urine Glucose (UA) 1+ H (Negative) Urine Blood Moderate H (Negative) Urine RBC 17 H (0-5) /hpf Urine Mucus Rare H (None) /hpf 12/23/24 12/23/24 Range/Units 05:24 05:24 WBC (4.50-10.00) X 10*3/uL Eosinophils # (0.04-0.35) X 10*3/uL ESR 19 H (0-15) mm/Hr BUN/Creatinine Ratio (12.00-20.00) Ratio Glucose (70-110) mg/dL Calcium (8.7-10.3) mg/dL C-Reactive Protein 1.60 H (0.00-0.80) mg/dL Albumin/Globulin Ratio (1.60-3.17) Ratio Ur Specific [place] (1.001-1.035) Urine Glucose (UA) (Negative) Urine Blood (Negative) Urine RBC (0-5) /hpf Urine Mucus (None) /hpf Assessment and Plan (1) Fever Current Visit: Yes Status: Acute Code(s): R50.9 - FEVER, UNSPECIFIED SNOMED Code(s): 744495575 Plan: 1patient was in the hospital with headache patient did have photophobia nausea but no vomiting patient did not have any elevated white count does not look toxic hide clinically suspicious for possible viral meningitis to be the likely etiology as initial workup has been negative UA is negative CT angiogram of the chest was negative for PE did not show any consolidation there is no evidence of any abdominal tenderness joint swelling or cellulitis 2-anesthesia has been consulted for LP CSF should be sent for cell count differential Gram stain culture as well as comprehensive viral PCR Multiple question concern answered We will follow on clinical condition and cultures to further adjust medication if needed Thank you for this consultation we will follow the patient along with you Dictation was produced using [employer] software. please excuse any grammatical, word or spelling errors. Time with Patient: Greater than 30
--- NOTE | 2024-12-24 12:53 | PN ---
PROGRESS NOTE SUBJECTIVE: The patient is a 44-year-old gentleman, who is admitted to hospital with chest pain, has multiple other problems including migraine related headaches, GERD, was evaluated by my associate, Dr. Bean yesterday. He is feeling better from cardiac standpoint. His febrile illness is being investigated. The patient may undergo lumbar puncture. An echo was ordered yesterday. We are still waiting on the results. OBJECTIVE: GENERAL: On exam, comfortable at rest. VITAL SIGNS: Stable. CHEST: Reveals good air entry bilaterally. HEART: Reveals first and second heart sounds. No gallop. No murmur. EXTREMITIES: Examination of the extremities did not reveal any edema. Peripheral pulses are felt. ASSESSMENT: Atypical chest pain. PLAN: 1. I will review the echo results. 2. Febrile illness. 3. Workup in progress. MMODL / IJN: [id number] /
--- NOTE | 2024-12-24 13:07 | P.PN ---
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 Chest x-ray reveals no acute pulmonary process. Doppler of the lower extremity ruled out DVT. CT angiogram ruled out pulmonary embolism. There was an incidental 11 mm left lower lobe pulmonary nodule noted. We were consulted for the same. He is seen in the emergency department. Currently sitting up on a stretcher. Awake and alert in no acute distress. Maintaining good O2 saturations in the 90s on room air oxygen. No cough or congestion. No hemoptysis. Hemodynamically stable. White count 3.8. Hemoglobin 14.8. Platelets 180. Sodium 135. Potassium 4.1. Bicarb 23. BUN 9. Creatinine 1.14. Glucose 160. Troponins negative x 2. CBC viral screen negative for influenza A/B, RSV and COVID. The patient is seen today December 23, 2024 in follow-up on the regular medical floor. He is currently sitting up at the bedside. Awake and alert in no acute distress. Maintaining O2 saturations in the 90s on room air oxygen. He denies any worsening shortness of breath, cough or congestion. He denies any sore throat or cough. He is still having some left-sided chest discomfort. He does have a fever of unknown origin. Tmax of 101.5. Procalcitonin pending. Echocardiogram pending. White count 3.9. Hemoglobin 13.7. Platelets 168. Sodium 137. Potassium 4.8. Bicarb 24. BUN 11. Creatinine 1.3. Glucose 125. He is receiving Tylenol as needed. Lovenox for DVT prophylaxis. The patient is seen today December 24, 2024 in follow-up on the regular medical floor. He is up ambulating in his room. Awake and alert in no acute distress. Maintaining good O2 saturations in the 90s on room air oxygen. He has been afebrile. Hemodynamically stable. Blood culture shows no growth thus far. No new labs today. He remains on Lovenox for DVT prophylaxis. Objective - Vital Signs Vital signs: Vital Signs Temp 99.5 F 12/24/24 07:10 Pulse 95 12/24/24 07:10 Resp 16 12/24/24 07:10 BP 115/77 12/24/24 07:10 Pulse Ox 98 12/24/24 07:10 FiO2 Intake & Output 12/23/24 12/24/24 12/24/24 18:59 06:59 18:59 Intake Total 352 118 Balance 352 118 Intake: Oral 352 118 Other: Voiding Method Toilet # Voids 6 1 2 # Bowel Movements 0 0 - Exam GENERAL EXAM: Alert, 44-year-old male, up ambulating in his room, on room air oxygen, comfortable in no apparent distress. HEAD: Normocephalic. EYES: Normal reaction of pupils, equal size. NOSE: Clear with pink turbinates. THROAT: No erythema or exudates. NECK: No masses, no JVD. CHEST: No chest wall deformity. LUNGS: Equal air entry with no crackles, wheeze, rhonchi or dullness. CVS: S1 and S2 normal with no audible murmur, regular rhythm. ABDOMEN: No hepatosplenomegaly, normal bowel sounds, no guarding or rigidity. SPINE: No scoliosis or deformity SKIN: No rashes CENTRAL NERVOUS SYSTEM: No focal deficits, tone is normal in all 4 extremities. EXTREMITIES: There is no peripheral edema. No clubbing, no cyanosis. Peripheral pulses are intact. - Labs CBC & Chem 7: 12/23/24 05:24 12/23/24 05:24 Labs: Microbiology - Last 24 Hours (Table) 12/23/24 05:24 Blood Culture - Preliminary Blood Assessment and Plan Assessment: Atypical chest pain, acute coronary syndrome ruled out Fever of unknown origin Dyspnea of unclear etiology, possible deconditioning, CT angiogram ruled out pulmonary embolism, clear lung mcdaniel Pulmonary nodule measuring 11 mm in the left lower lobe History of obstructive sleep apnea maintained on CPAP Lifelong non-smoker Plan: The patient was seen and evaluated Medications reviewed Blood culture reveals no growth thus far Stable and on room air oxygen Lovenox for DVT prophylaxis Protonix for GI prophylaxis Patient aware of the 11 mm pulmonary nodule Recommend follow-up CAT scan in 3 to 4 months Cleared for discharge from the pulmonary standpoint I have personally seen and examined the patient, performed the documentation and the assessment and plan as written. Number of minutes spent on the visit: 10 Dictation was produced using [employer] software. Please excuse any grammatical, word or spelling errors.
--- NOTE | 2024-12-24 15:54 | P.PN ---
Subjective 44-year-old male with history of obstructive sleep apnea came in with complaints of headache bilateral patient had couple episodes of migraine in the past patient was also complaining of chest pain fluttering in nature. Patient had a chest x-ray which showed a pulmonary nodule. Patient had a CT angio of the chest which did not show any significant abnormality except for a pulmonary nodule for which pulmonary evaluated the patient. They will follow-up with him as an outpatient no further intervention is being advised by them. Patient was eval by cardiology for chest pain appears to be noncardiac chest pain. Patient's troponins are negative EKG did not show any significant abnormality. Patient also had low-grade fevers last night patient is negative for influenza AB, RSV and COVID. Patient was having some photophobia but does not have any nuchal rigidity or neck rigidity or neck pain. Patient does not look toxic or septic 12/24/2024 Patient is hemodynamically stable afebrile since yesterday morning LP was not done patient is off antibiotics. REVIEW OF SYSTEMS: All other systems are negative except those mentioned in the HPI PHYSICAL EXAMINATION: GENERAL: The patient is alert and oriented x3, not in any acute distress. Well developed, well nourished. HEENT: Pupils are round and equally reacting to light. EOMI. No scleral icterus. No conjunctival pallor. Normocephalic, atraumatic. No pharyngeal erythema. No thyromegaly. CARDIOVASCULAR: S1 and S2 present. No murmurs, rubs, or gallops. PULMONARY: Chest is clear to auscultation, no wheezing or crackles. ABDOMEN: Soft, nontender, nondistended, normoactive bowel sounds. No palpable organomegaly. MUSCULOSKELETAL: No joint swelling or deformity. EXTREMITIES: No cyanosis, clubbing, or pedal edema. NEUROLOGICAL: Gross neurological examination did not reveal any focal deficits. SKIN: No rashes. Assessment and plan -Chest pain atypical rule out acute coronary syndromes evaluated by cardiology no further intervention is being planned at this time - Headache with unexplained fever although there is low possibility meningitis and encephalitis is a consideration, infectious disease evaluated the patient awaiting LP patient is not on any antibiotics yet - Pulmonary nodule 11 mm in the left lower lobe patient will have a follow-up CAT scan in about 3 to 4 months as an outpatient - Obstructive sleep apnea - Obesity - Gastroesophageal reflux disease - Headache there is still a possibility of migraine headache I cannot give Nostril anti-inflammatories as his creatinine went up from 1.1-1.3 we will use tramadol for now. DVT prophylaxis: Early ambulation Objective - Vital Signs Vital signs: Vital Signs Temp 98.2 F 12/24/24 13:59 Pulse 83 12/24/24 13:59 Resp 18 12/24/24 13:59 BP 126/81 12/24/24 13:59 Pulse Ox 98 12/24/24 13:59 FiO2 Intake & Output 12/23/24 12/24/24 12/24/24 18:59 06:59 18:59 Intake Total 352 118 Balance 352 118 Intake: Oral 352 118 Other: Voiding Method Toilet # Voids 6 1 2 # Bowel Movements 0 0 - Labs CBC & Chem 7: 12/23/24 05:24 12/23/24 05:24 Labs: Microbiology - Last 24 Hours (Table) 12/23/24 05:24 Blood Culture - Preliminary Blood
--- NOTE | 2024-12-24 20:36 | P.PN ---
Subjective Progress Note Date: 12/24/24 Principal diagnosis: Reason for follow-up is fever likely viral meningitis Patient is a 44-year-old male with a past medical history of For sleep apnea DVT presenting to the hospital with multiple symptoms patient initially started having headache and subsequently chest pain. Patient was in the hospital he did have a fever upon this consultation was initial workup negative. On today's evaluation that is 12/25/2023, patient did have improvement in his fever pattern with temperature of 99.5 F this morning and denies having any chills, patient is on room air and breathing comfortably no chest pain, mild cough, the patient did not have any nausea vomiting abdominal pain or any diarrhea, still complaining of headache though controlled with the pain medication did have photophobia. No new lab has been obtained today blood culture negative Objective - Vital Signs Vital signs: Vital Signs Temp 99.5 F 12/24/24 07:10 Pulse 95 12/24/24 07:10 Resp 16 12/24/24 07:10 BP 115/77 12/24/24 07:10 Pulse Ox 98 12/24/24 07:10 FiO2 Intake & Output 12/23/24 12/24/24 12/24/24 18:59 06:59 18:59 Intake Total 352 118 Balance 352 118 Intake: Oral 352 118 Other: Voiding Method Toilet # Voids 6 1 # Bowel Movements 0 0 - Exam GENERAL DESCRIPTION: Middle-age male up in the chair in no distress RESPIRATORY SYSTEM: Unlabored breathing , decreased breath sounds at bases HEART: S1 S2 regular rate and rhythm , ABDOMEN: Soft , no tenderness EXTREMITIES: No edema feet - Labs CBC & Chem 7: 12/23/24 05:24 12/23/24 05:24 Labs: Abnormal Lab Results - Last 24 Hours (Table) 12/23/24 Range/Units 05:24 ESR 19 H (0-15) mm/Hr Assessment and Plan (1) Fever Current Visit: Yes Status: Acute Code(s): R50.9 - FEVER, UNSPECIFIED SNOMED Code(s): 094806737 Plan: 1patient presented to the hospital with headache patient did have photophobia nausea but no vomiting patient did not have any elevated white count does not look toxic hide clinically suspicious for possible viral meningitis to be the likely etiology as initial workup has been negative UA is negative CT angiogram of the chest was negative for PE did not show any consolidation there is no evidence of any abdominal tenderness joint swelling or cellulitis 2-anesthesia has been consulted for LP CSF should be sent for cell count differential Gram stain culture as well as comprehensive viral PCR, unfortunately anesthesia refused to do the LP last evening and this morning saying, they are busy, we do have a teleneurology this weekend so no neurologist available in the hospital to do the LP 3-patient did have improvement of fever pattern as well as hide to continue with the current supportive treatment which will be the mainstay for viral meningitis however we still need to have the diagnosis and may consider transferring the patient to a different facility where LP could be completed we will leave it to the admitting team Multiple question concern answered Dictation was produced using [employer] dictation software. please excuse any grammatical, word or spelling errors. Time with Patient: Less than 30
[2024-12-25 07:20] VITALS: PULSE 79
[2024-12-25] MEDS: traMADol 50 MG TAB PO PRN (08:34)
--- NOTE | 2024-12-25 12:29 | P.DS ---
Providers Date of admission: 12/22/24 14:47 Attending physician: Chanda Santiago Consults: 12/22/24 14:44 Consult Physician Routine Consulting Provider: [facility] Consult Reason/Comments: intermittent chest pain/dyspnea Do you want consulting provider notified?: Yes Consult Physician Routine Consulting Provider: Andrea Aguilera Consult Reason/Comments: pulmonary nodule Do you want consulting provider notified?: Yes 12/23/24 08:03 Consult Physician Routine Consulting Provider: Huy Brown Consult Reason/Comments: FUO Do you want consulting provider notified?: Yes 12/23/24 16:08 Consult to Anesthesia Stat Consulting Provider: [facility] Consult Reason/Comments: LP/CSF Primary care physician: Stated None Hospital Course: 44-year-old male with history of obstructive sleep apnea came in with complaints of headache bilateral patient had couple episodes of migraine in the past patient was also complaining of chest pain fluttering in nature. Patient had a chest x-ray which showed a pulmonary nodule. Patient had a CT angio of the chest which did not show any significant abnormality except for a pulmonary nodule for which pulmonary evaluated the patient. They will follow-up with him as an outpatient no further intervention is being advised by them. Patient was eval by cardiology for chest pain appears to be noncardiac chest pain. Patient's troponins are negative EKG did not show any significant abnormality. Patient also had low-grade fevers last night patient is negative for influenza AB, RSV and COVID. Patient was having some photophobia but does not have any nuchal rigidity or neck rigidity or neck pain. Patient does not look toxic or septic 12/24/2024 Patient is hemodynamically stable afebrile since yesterday morning LP was not done patient is off antibiotics. 12/25/2024 Patient is clinically doing well. No fevers tramadol helped his headache. I will obtain a CT of the head to rule out any intracranial pathology acutely if there is no significant intracranial pathology as patient only has mild headache patient will be discharged on tramadol for symptomatic treatment of headache and to follow-up with neurology as an outpatient. Unfortunately LP was not done but patient does not have any fevers and clinically looking well without antibiotics. Patient will be discharged today if cleared by infectious disease. PHYSICAL EXAMINATION: GENERAL: The patient is alert and oriented x3, not in any acute distress. Well developed, well nourished. HEENT: Pupils are round and equally reacting to light. EOMI. No scleral icterus. No conjunctival pallor. Normocephalic, atraumatic. No pharyngeal erythema. No thyromegaly. CARDIOVASCULAR: S1 and S2 present. No murmurs, rubs, or gallops. PULMONARY: Chest is clear to auscultation, no wheezing or crackles. ABDOMEN: Soft, nontender, nondistended, normoactive bowel sounds. No palpable organomegaly. MUSCULOSKELETAL: No joint swelling or deformity. EXTREMITIES: No cyanosis, clubbing, or pedal edema. NEUROLOGICAL: Gross neurological examination did not reveal any focal deficits. SKIN: No rashes. Assessment and plan -Chest pain atypical rule out acute coronary syndromes evaluated by cardiology no further intervention is being planned at this time - Headache with unexplained fever there was a low possibility but there was a concern for meningitis or encephalitis. Tried to get an LP unable to obtain LP at this time. Patient interested in antibiotics but the patient symptoms of headache resolved and patient did not have any fever after that 1 day. Patient may have a headache acute viral illness patient will be discharged today. - Pulmonary nodule 11 mm in the left lower lobe patient will have a follow-up CAT scan in about 3 to 4 months as an outpatient - Obstructive sleep apnea - Obesity - Gastroesophageal reflux disease - Headache probably migraine. Will follow-up with neurology as an outpatient with rule out any acute intracranial pathology with a CT of the head Patient Condition at Discharge: Stable Plan - Discharge Summary New Discharge Prescriptions: No Action diphenhydrAMINE [Benadryl] 25 mg PO DAILY Omeprazole Magnesium [PriLOSEC OTC] 20 mg PO DAILY Discharge Medication List Omeprazole Magnesium [PriLOSEC OTC] 20 mg PO DAILY 12/22/24 [History] diphenhydrAMINE [Benadryl] 25 mg PO DAILY 12/22/24 [History] Follow up Appointment(s)/Referral(s): Andrea Aguilera MD [STAFF PHYSICIAN] - 4 Weeks Vandana Barnes MD [STAFF PHYSICIAN] - 1 Week Neida Hernandez MD [REFERRING] - 1 Week [facility] [NON-STAFF] - 1-2 days (Contact a primary care office to become established with a provider.) [facility] [NON-STAFF] - 1-2 days None,Stated [Primary Care Provider] - 1-2 days Discharge/Stand Alone Forms: [facility] PCPs Discharge Disposition: HOME SELF-CARE
--- NOTE | 2024-12-25 12:34 | P.PN ---
Subjective Progress Note Date: 12/25/24 Consult reason: chest pain (Dyspnea) History of present illness: This is a 44-year-old male with past medical history of GERD, migraine headaches. We have been asked to evaluate the patient for chest pain. Patient states he started with a migraine headache that was mor severe than he has had in the past. The next day, he developed chest discomfort. Chest pain felt like a heaviness and at the same time he had increased shortness of breath. He denies dizziness or lightheadedness. He denies any lower extremity edema. He states he did have sweating of his palms. He denies any cough or sputum production. No wheezing. Patient also states he had a fluttering sensation in his chest. He has had shortness of breath for the past week that his is also noticed. He denies chest pain with activity. He denies any change in chest pain with deep breathing. Patient states that he is a non-smoker. No alcohol abuse. He denies history of hypertension or diabetes. He has never seen a event attendant in the past. Patient notes that he has been running a low- grade fever since arrival. Blood pressure noted to be high overnight at 167/108. Blood pressure is now 130/74, heart rate 100, pulse ox 95% on room air, temperature max 101.5. Patient is status post 1 L IV fluid bolus, Zofran, Toradol, Benadryl and aspirin. Patient denies chest pain at the time of this evaluation but he still has ongoing headache 01/19. -EKG: Sinus rhythm with nonspecific ST changes. -Chest x-ray: No acute process. -Venous duplex bilateral lower extremity negative for DVT. -CTA chest: No pulmonary embolism. 10.7 mm left lower lobe pulmonary nodule and left hilar lymphadenopathy. Hepatomegaly and borderline splenic enlargement. Malignancy not excluded. -Laboratory studies: WBC 3.8, hemoglobin 14.8. D-dimer 0.62. Sodium 135, potassium 4.1, BUN 9, creatinine 1.14. Troponins negative x 3. TSH 1.22. Glucose 160. Cepheid viral panel not detected. Urinalysis revealed moderate amount of blood. -Home cardiac medications: None 12/25/2024 Patient seen and examined. Patient states that he is still having a headache but is better. He thinks the Toradol has helped. Echocardiogram is unremarkable. Blood pressure 109/77, heart rate 79, pulse ox 97% on room air. Physical examination: Gen: This is a 44-year-old male in no acute distress. VS: reviewed HEENT: Head is atraumatic, normocephalic. Pupils equal, round. Sclerae is anicteric. NECK: Supple. No JVD. LUNGS: Clear to auscultation. No wheezes or rhonchi. No intercostal retractions. HEART: Regular rate and rhythm. No murmur. No rub. ABDOMEN: Soft No tenderness. EXTREMITIES: No pedal edema. No calf tenderness. NEUROLOGICAL: Patient is awake, alert and oriented x3. Assessment: Atypical chest pain, acute coronary syndrome ruled out Febrile illness of unclear etiology, no clinical evidence of pericarditis Pulmonary nodule with lymphadenopathy, plan is outpatient follow-up GERD Plan: No plan for any additional cardiac workup at this time. Patient may follow-up in the office with Dr. Barnes for outpatient stress testing. Patient is cleared for discharge Cardiology will sign off this case and follow on an as-needed basis. Please reconsult for any new concerns. Patient may follow-up in the office in one to 2 weeks. Nurse practitioner note has been reviewed, I agree with documented findings and plan of care. Patient was seen and examined. Objective - Vital Signs Vital signs: Vital Signs Temp 97.8 F 12/25/24 06:45 Pulse 79 12/25/24 06:45 Resp 20 12/25/24 06:45 BP 109/77 12/25/24 06:45 Pulse Ox 97 12/25/24 06:45 FiO2 Intake & Output 12/24/24 12/25/24 12/25/24 18:59 06:59 18:59 Intake Total 118 180 Balance 118 180 Intake: Oral 118 180 Other: Voiding Method Toilet # Voids 3 2 - Labs CBC & Chem 7: 12/23/24 05:24 12/23/24 05:24 Labs: Microbiology - Last 24 Hours (Table) 12/23/24 05:24 Blood Culture - Preliminary Blood
--- NOTE | 2024-12-25 13:13 | CT ---
EXAMINATION TYPE: CT brain wo con DATE OF EXAM: 12/25/2024 12:59 PM COMPARISON: None. CLINICAL INDICATION: Male, 44 years old with history of Intracranial bleed, YE. TECHNIQUE: Brain: Axial CT images of the brain were obtained with coronal and sagittal reformats created and rev iewed. Contrast used: None. Oral contrast used: None. CT DLP: 1205.9 mGycm, Automated exposure control for dose reduction was used. FINDINGS: Brain: Extra-axial spaces: No abnormal extra-axial fluid collections. Ventricular system: Within normal limits Cerebral parenchyma: No acute intraparenchymal hemorrhage or mass effect. The adams-white junction is well differentiated. Cerebellum: Unremarkable. Mass effect: No evidence of midline shift. Intracranial vasculature: unremarkable Soft tissues: Normal. Calvarium/osseous structures: No depressed skull fracture. Paranasal sinuses and mastoid air cells: Mild scattered paranasal sinus disease. Visualized orbits: Orbital contents are intact. IMPRESSION: No acute intracranial process. [facility], , 12/25/2024 1:11 PM
[2024-12-25 14:02] VITALS: BP 117/75; RESP 18; TEMP 98
--- NOTE | 2024-12-25 15:16 | P.PN ---
Subjective Progress Note Date: 12/25/24 Principal diagnosis: Reason for follow-up is fever likely viral meningitis Patient is a 44-year-old male with a past medical history of For sleep apnea DVT presenting to the hospital with multiple symptoms patient initially started having headache and subsequently chest pain. Patient was in the hospital he did have a fever upon this consultation was initial workup negative. On today's evaluation that is 12/25/2024, Patient is afebrile patient is currently on room air and denies having any shortness of breath, the patient denies any chest pain or cough, the patient denies any nausea vomiting did not have any abdominal pain and no diarrhea patient mention improvement in the headache. MRI patient better wants to go home. No new labs increased pain today blood culture has been negative CT of the brain was negative for any acute process Objective - Vital Signs Vital signs: Vital Signs Temp 98 F 12/25/24 13:19 Pulse 79 12/25/24 13:19 Resp 18 12/25/24 13:19 BP 117/75 12/25/24 13:19 Pulse Ox 98 12/25/24 13:19 FiO2 Intake & Output 12/24/24 12/25/24 12/25/24 18:59 06:59 18:59 Intake Total 118 402 Balance 118 402 Intake: Oral 118 402 Other: Voiding Method Toilet # Voids 3 2 2 - Exam GENERAL DESCRIPTION: Middle-age male up in the chair in no distress RESPIRATORY SYSTEM: Unlabored breathing , decreased breath sounds at bases HEART: S1 S2 regular rate and rhythm , ABDOMEN: Soft , no tenderness EXTREMITIES: No edema feet - Labs CBC & Chem 7: 12/23/24 05:24 12/23/24 05:24 Labs: Microbiology - Last 24 Hours (Table) 12/23/24 05:24 Blood Culture - Preliminary Blood Assessment and Plan (1) Fever Current Visit: Yes Status: Acute Code(s): R50.9 - FEVER, UNSPECIFIED SNOMED Code(s): 023531533 (2) Viral meningitis Current Visit: Yes Status: Acute Code(s): A87.9 - VIRAL MENINGITIS, UNSPECIFIED SNOMED Code(s): 33030306 Plan: 1patient presented to the hospital with headache patient did have photophobia nausea but no vomiting patient did not have any elevated white count does not look toxic hide clinically suspicious for possible viral meningitis to be the likely etiology as initial workup has been negative UA is negative CT angiogram of the chest was negative for PE did not show any consolidation there is no evidence of any abdominal tenderness joint swelling or cellulitis 2-anesthesia has been consulted for LP CSF should be sent for cell count differential Gram stain culture as well as comprehensive viral PCR, unfortunately anesthesia refused to do the LP last evening and this morning saying, they are busy, we do have a teleneurology this weekend so no neurologist available in the hospital to do the LP 3-patient did have resolution of his fever and improvement in the headache with the tramadol pointing towards likely viral meningitis treatment is supportive unfortunately LP could not be completed this has been explained to the patient and his as the patient has been cleared for discharge no need for any antibiotic or antiviral, instruction to the patient and the if return of the headache fever photophobia or vomiting he needs to come back to the hospital right away Question concern were answered in layman term Dictation was produced using [employer] dictation software. please excuse any grammatical, word or spelling errors. Time with Patient: Less than 30
== END 2024-12-25 15:08 | disposition home or self-care (01) | DRG 203 ==
LOC: EC 09:50 → 6NMEDSUR 14:46 → OBSVTOIN 14:47 → 6NMEDSUR 16:39
PROVIDERS: ADMIT Hospitalist; ATTEND Hospitalist
DX: R07.89 Other chest pain (principal); E66.9 Obesity, unspecified; G43.909 Migraine, unspecified, not intractable, without status migrainosus; G47.33 Obstructive sleep apnea (adult) (pediatric); Z11.52 Encounter for screening for COVID-19; K21.9 Gastro-esophageal reflux disease without esophagitis; Z68.37 Body mass index [BMI] 37.0-37.9, adult; R91.1 Solitary pulmonary nodule; R50.9 Fever, unspecified; R59.0 Localized enlarged lymph nodes; R06.00 Dyspnea, unspecified
CPT/HCPCS: 36415; 70450; 71046; 71275; 80053; 81001; 83605; 83690; 83735; 83880; 84145; 84443; 84484; 85025; 85379; 85610; 85652; 85730; 86140; 87040; 87636; 93005; 93306; 93970; 96374; 96375; 96376; 99285